=== PATIENT | male | born 1930 | race Caucasian/White ===

== ENCOUNTER → 2016-06-28 | Day surgery (SDC) | payer OTHER ==
[~2016-06-28] VITALS: Ht 160 cm; Wt 68.0 kg
[2016-06-28] VITALS (9 sets, daily range): BP systolic 116–174; BP diastolic 43–96
[~2016-06-28] MED LIST: ASPIRIN81 MG ORAL; BSS 15ml BTL ONE; BSS 500ml btl ONE; CLOPIDOGREL75 MG ORAL; Dexamethasone 4mg/ml vial ONE; Diclofenac Sod 0.1% Op Soln RIGHT EYE SCH; DiphenhydrAMINE 50mg/ml Inj IVP PRN; DiphenhydrAMINE 50mg/ml Inj ONE; EPINEPHrine 1mg/1ml Amp ONE; Gatifloxacin Opth Solution 0.5% RIGHT EYE SCH; JANUVIA25 MG ORAL; LR 1000ml ONE; Labetalol 5mg/ml 20ml vial IV PRN; Lidocaine 1% MPF 10mg/ml 5ml ONE; METOPROLOL SUCC50 MG ORAL; OXISTAT30 G1 TP; PRAVASTATIN SOD20 M1 ORAL; Phenylephrine 10% Opth Soln 5ml RIGHT EYE SCH; Povidone-Iodine 5% opth solution ONE; Sodium Hyaluronate 10 mg/ml 0.85ml ONE; Sterile Water Irrig 1000ml IRRIG ONE; TAMSULOSIN HCL0.4 MG ORAL; TUMS300 MG PO; Tropicamide 1% Opth Soln RIGHT EYE SCH; fentaNYL 100 mcg/2 mL IV ONE
[2016-06-28 08:13] LABS: BASOPHILS % (AUTO) 0.9 % (0.0-2.0); EOSINOPHILS % (AUTO) 1.3 % (0.0-3.0); LYMPHOCYTES % (AUTO) 31.4 % (20.0-45.0); MEAN CORPUSCULAR HEMOGLOBIN 32.9 PG (27.0-31.0); MEAN CORPUSCULAR HGB CONC 32.9 G/DL (32.0-36.0); MEAN CORPUSCULAR VOLUME 100 FL (80-99); MEAN PLATELET VOLUME 8.5 FL (6.5-10.1); MONOCYTES % (AUTO) 10.4 % (1.0-10.0); NEUTROPHILS % (AUTO) 55.9 % (45.0-75.0); PLATELET COUNT 121 K/UL (150-450); RED BLOOD COUNT 4.97 M/UL (4.70-6.10); RED CELL DISTRIBUTION WIDTH 12.1 % (11.6-14.8); WHITE BLOOD COUNT 5.9 K/UL (4.8-10.8)
[2016-06-28 08:24] LABS: ANION GAP 16 (5-15); CALCIUM 9.1 mg/dL (8.6-10.2); CARBON DIOXIDE 23 mEQ/L (20-30); CHLORIDE 100 mEQ/L (98-107); CREATININE 2.1 mg/dL (0.7-1.2); HEMOLYSIS 24; POTASSIUM 4.8 mEQ/L (3.4-4.9); SODIUM 139 mEQ/L (135-145)
--- NOTE | 2016-06-28 09:57 | Anethesia Preoperative Eval ---
Anesthesia Pre-op PMH/ROS General Date of Evaluation: Jun 28, 2016 Anesthesiologist: Hector ASA Score: ASA 3 Mallampati Score Class I : Soft palate, uvula, fauces, pillars visible Class II: Soft palate, uvula, fauces visible Class III: Soft palate, base of uvula visible Class IV: Only hard plate visible Mallampati Classification: Class II Surgeon: Yvonne Diagnosis: Right cataract Surgical Procedure: Right cataract extraction with IOL Anesthesia History: none Social History: alcohol use - severe alcoholism with liver disease Family History: no anesthesia problems Allergies: Coded Allergies: No Known Allergies (Unverified , 06/28/16) Medications: see eMAR Past Medical History Cardiovascular: Reports: HTN, other - HLD, CHF, PVD, Denies: CAD, [place], arrhythmia, valve dz Pulmonary: Denies: COPD, MODESTA, asthma, other Gastrointestinal/Genitourinary: Reports: CRI, GERD, other - BPH, Denies: ESRD Neurologic/Psychiatric: 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 Exam Physician Exam Last Vital Signs Date Time Temp Pulse Resp B/P Pulse Ox O2 Delivery O2 Flow Rate FiO2 06/28/16 08:27 97.6 64 18 159/76 99 Room Air Constitutional: NAD Cardiovascular: RRR Respiratory: CTA Airway Exam Mallampati Score: Class II Anesthesia Pre-op A/P Labs Hematology Test 06/28/16 08:02 White Blood Count 5.9 K/UL (4.8-10.8) Red Blood Count 4.97 M/UL (4.70-6.10) Hemoglobin 16.3 G/DL (14.2-18.0) Hematocrit 49.6 % (42.0-52.0) Mean Corpuscular Volume 100 FL (80-99) H Mean Corpuscular Hemoglobin 32.9 PG (27.0-31.0) H Mean Corpuscular Hemoglobin Concent 32.9 G/DL (32.0-36.0) Red Cell Distribution Width 12.1 % (11.6-14.8) Platelet Count 121 K/UL (150-450) L Mean Platelet Volume 8.5 FL (6.5-10.1) Neutrophils (%) (Auto) 55.9 % (45.0-75.0) Lymphocytes (%) (Auto) 31.4 % (20.0-45.0) Monocytes (%) (Auto) 10.4 % (1.0-10.0) H Eosinophils (%) (Auto) 1.3 % (0.0-3.0) Basophils (%) (Auto) 0.9 % (0.0-2.0) Chemistry Test 06/28/16 08:02 Sodium Level 139 mEQ/L (135-145) Potassium Level 4.8 mEQ/L (3.4-4.9) Chloride Level 100 mEQ/L (98-107) Carbon Dioxide Level 23 mEQ/L (20-30) Anion Gap 16 (5-15) H Blood Urea Nitrogen 32 mg/dL (7-23) H Creatinine 2.1 mg/dL (0.7-1.2) H Estimat Glomerular Filtration Rate mL/min (>60) Glucose Level 160 mg/dL (74-106) H Calcium Level 9.1 mg/dL (8.6-10.2) Studies Pre-op Studies: EKG Risk Assessment & Plan Assessment: ASA III Plan: MAC Status Change Before Surgery: No Pre-Antibiotics Drug: LAVELLE JOYCE M.D. Jun 28, 2016 09:57
--- NOTE | 2016-06-28 10:00 | Immediate Post-Op Evaluation ---
Immediate Post-Op Evalulation Immediate Post-Op Evalulation Procedure: Right cataract extraction with IOL Date of Evaluation: Jun 28, 2016 Time of Evaluation: 11:24 IV Fluids: 300 Blood Products: 0 Estimated Blood Loss: 0 Urinary Output: 0 Blood Pressure Systolic: 174 Blood Pressure Diastolic: 96 Pulse Rate: 68 Respiratory Rate: 17 O2 Sat by Pulse Oximetry: 100 Temperature (Fahrenheit): 97.3 Pain Score (1-10): 0 Nausea: No Vomiting: No Complications 0 Patient Status: awake, reacts, patent, none Hydration Status: adequate Drug: N/A LAVELLE CARRASCO M.D. Jun 28, 2016 10:00
--- NOTE | 2016-06-28 10:01 | 48 Hour Post Anesthesia Eval ---
Post Anesthesia Evaluation Procedure: Right cataract extraction with IOL Date of Evaluation: Jun 28, 2016 Blood Pressure Systolic: 161 0: 74 Pulse Rate: 66 Respiratory Rate: 16 O2 Sat by Pulse Oximetry: 100 Airway: patent Nausea: No Vomiting: No Pain Intensity: 0 Hydration Status: adequate Cardiopulmonary Status: at baseline Mental Status/LOC: patient returned to baseline Post-Anesthesia Complications: 0 Follow-up care needed: ready to discharge LAVELLE CARRASCO M.D. Jun 28, 2016 10:01
--- NOTE | 2016-06-28 11:25 | Brief Operative Note ---
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 Lathe Machinist: None Additional Surgeons: None Anesthesiologist: Dr. Krishnan Anesthesia: MAC Specimen: none Complications: none Condition: stable Estimated Blood Loss: none Drains: none Implant(s) used?: Yes - Monofocal PC IOL implanted in the right eye without complication JULIAN RUSSELL Jun 28, 2016 11:25
--- NOTE | 2016-06-29 06:07 | Operative Note - Dictated ---
DATE OF SURGERY: 06/28/2016 FACILITY: [facility]. SURGEON: Harris Russell M.D. FAMILY MEDICINE PHYSICIAN ASSISTANT: None. ANESTHESIOLOGIST: Dr. Abdul. ANESTHESIA: Monitored anesthesia care (MAC). PREOPERATIVE DIAGNOSES: 1. Cataract, right eye. 2. Floppy iris syndrome. 3. Complex cataract. 4. 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 POSTOPERATIVE DIAGNOSES: 1. Cataract, right eye. 2. Floppy iris syndrome 3. Complex cataract. 4. 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 SURGERY PERFORMED: 1. Cataract extraction with phacoemulsification and posterior chamber intraocular lens implantation in the right eye. 2. Insertion of Malyugin ring for treatment of floppy iris syndrome. INDICATION FOR SURGERY: The patient is an 85-year-old gentleman with a history of hard of hearing and cardiovascular chest pain. The patient has hypertension, hypercholesterolemia, coronary artery disease, benign prostatic hypertrophy, macular degeneration, corneal dystrophy, and corneal scar. The medications that the patient is taking include Alphagan P for glaucoma. The patient has glaucoma as well. The patient is not allergic to any medications and the patient is a heavy drinker, but not a smoker. The patient is taking simvastatin, Diovan, Alphagan. He is complaining of blurred vision in the right eye. On examination of the right eye, the cornea has some corneal scar and corneal dystrophy. Anterior chamber is clean and quiet. Pupillary reflexes normal. There is no RAPD. There is 5+ nuclear sclerosis and 3+ cortical cataract in the right eye. Funduscopy shows macular degeneration, high C/D ratio. The periphery retina is flat. To improve his vision in the right eye, the cataract has to be removed and posterior chamber intraocular lens has to be implanted. INFORMED CONSENT: The nature of the surgery, risks, benefits, alternatives, and potential complications were explained all in the language Farsi to him. The potential complications including, but not limited to bleeding, infection, posterior capsular rupture, lens subluxation, flat anterior chamber, iris prolapse, corneal edema, macular edema, wound leak, retinal detachment, endophthalmitis, uveitis, loss of vision, and even loss of the eye were all explained in detail to the patient. The patient was understanding and accepted all the complications. The alternatives including accommodating lenses, multifocal lenses, and conventional cataract surgery with limbal relaxing incision for treatment of astigmatism were all explained in detail to the patient. He voiced understanding. The patient elected to have a conventional cataract surgery in the right eye. Then, he signed the consent form, which is in the chart. DESCRIPTION OF SURGERY AND FINDINGS: Following that, the patient was taken to the operation room in a stable condition. Lidocaine gel Akten 3.5% were applied to the conjunctiva of the right eye. Following that, IV sedation was given by the anesthesiologist, Dr. Abdul. After adequate anesthesia and sedation had been achieved, the right eye was prepped and draped in sterile fashion for each ocular surgery. Following that, a speculum was placed in the right eye. Following that, using a Super Sharp knife a clear corneal side port was created. Following that, 1% lidocaine without preservative (MPF) was injected into the anterior chamber. Viscoelastic agent Healon was injected into the anterior chamber. Following that, a clear corneal temporal keratotomy was performed using a 2.8 mm keratome. Following that, VisionBlue was injected under the viscoelastic agent on top of the anterior capsule of the lens to stain the capsule. Following that, the whole viscoelastic agent was removed from the anterior chamber. Following that, using an balanced salt solution, hydrodissection and hydrodelineation was performed and the nucleus was freed. Using phacoemulsification machine, anterior capsulotomy was performed under the viscoelastic agent in the fashion of capsulorrhexis beautifully. After hydrodissection and hydrodelineation, phacoemulsification was performed in the fashion of horizontal chop with the phacoemulsification machine. The viscoelastic agent was injected into the anterior chamber again to protect the endothelium of the cornea. Following that, after removal of the nucleus, the cortical material was removed from the capsular bag. Following that the capsular bag was polished. Following that, the capsular bag was filled with viscoelastic agent, Healon. Following that, a +22.5 diopter ZCB00 foldable PCIOL with serial #[id number] was inserted into the capsular bag. Using a Sinskey hook, the lens was manipulated and put in the proper position. Following that, the viscoelastic was removed from the anterior part of the lens. The anterior chamber was filled with balanced salt solution. The wound was hydrated with balanced salt solution. The wound was checked for leakage. There was no leakage. Vigamox eye drops were applied to the conjunctiva of the right eye. The patient tolerated the surgery without complications. At the end of the surgery, the eye was patched with a clear sterile fenestrated shield. Following that, the patient was transferred to the recovery room. In the recovery room, postoperative orders and directions were given to the patient. The patient will be discharged home upon stabilization. The patient will be followed in my office tomorrow morning at 10 o'clock in the morning. ADDENDUM: After viscoelastic was injected into the anterior chamber, Malyugin ring was injected into the anterior chamber. Following that, a coil of the Malyugin ring was engaged with the sphincter of the pupil. A josh-shaped space was created for safe capsulotomy and safe phacoemulsification. At the end of the surgery, the Malyugin ring was removed from the anterior chamber. Harris Russell M.D. DR: Johnathan JOB#: [id number] CC:
--- NOTE | 2016-06-29 12:47 | Discharge Summary ---
DATE OF ADMISSION: 06/28/2016 DATE OF DISCHARGE: 06/28/2016 REASON FOR HOSPITALIZATION: Cataract, right eye. SURGERY PERFORMED: 1. Cataract extraction with phacoemulsification of posterior chamber intraocular lens implantation in the right eye. 2. Insertion of Malyugin ring anterior chamber to treat floppy iris syndrome _ . CONDITION IN THE HOSPITAL: The patient tolerated the surgery without complications. The patient was stable at discharge. DISCHARGE MEDICATIONS: 1. Prednisolone one drop in the right eye. 2. Vigamox eye drops one drop q.i.d. in the right eye. 3. Acular one drop q.i.d in the right eye. POSTOPERATIVE ORDERS: The patient has to rest at home, no bending, no lifting, and no watching TV tonight. POSTOPERATIVE FOLLOWUP: The patient will be followed in my office tomorrow morning at 10 o' clock in the a.m. Harris Russell M.D. DR: Johnathan JOB#: [id number] CC:
--- NOTE | 2016-06-30 11:15 | Pre-Procedure Note/Attestation ---
Pre-Procedure Note/Attestation Complete Prior to Procedure Planned Procedure: right Procedure Narrative: 1. CATARACT EXTRACTION WITH PHACO AND PC IOL IMPLANTATION, RIGHT EYE. 2.MALYUGIN RING INSERTION, RIGHT EYE FOR FLOPPY IRIS SYNDROME. 3.COMPLEX CATARACT , RIGHT EYE Indications for Procedure Pre-Operative Diagnosis: 1. CATARACT ,RIGHT EYE. 2. FLOPPY IRIS SYNDROME, RIGHT EYE 3. COMPLEX CATARACT , RIGHT EYE. Attestation I attest that I discussed the nature of the procedure; its benefits; risks and complications; and alternatives (and the risks and benefits of such alternatives ), prior to the procedure, with the patient (or the patient's legal textile machinery sales representative). I attest that, if there was a reasonable possibility of needing a blood transfusion, the patient (or the patient's legal textile machinery sales representative) was given the [facility] standardized written summary, pursuant to the [place] Blood Safety Act ([place] Health and Safety Code # 1645, as amended). I attest that I re-evaluated the patient just prior to the surgery and that there has been no change in the patient's H&P, except as documented below: JULIAN VEGA Jun 30, 2016 11:15
--- NOTE | 2016-07-01 08:47 | Pre-op HX & Phy Repo 2 SIG ---
DATE OF ADMISSION: 06/28/2016 NOTE: VERY POOR AUDIO QUALITY REASON FOR EVALUATION: I was asked by Dr. Harris Russell to see this 85-year-old male who is going for surgery on the right eye. The patient is having cataract in this eye and was seen by Dr. Russell. For complete dictation on the patient, the patient's old chart was reviewed. The patient and his are at bedside. PAST MEDICAL HISTORY: Remarkable for history of stroke and hypertension, history of type 2 diabetes. No history of heart attack. . No thyroid problem. Mild renal insufficiency. No anemia. History of GERD. . MEDICATIONS: , metoprolol, and Plavix. ALLERGIES: None known. FAMILY HISTORY: Father from cancer and mother from stroke. HABITS: Denied tobacco use. The patient drinks alcohol. No street drugs. PHYSICAL EXAMINATION: GENERAL: The patient is looking pale. VITAL SIGNS: Blood pressure 159/76, temperature 97.6 degrees, pulse 64, respirations 17, and O2 saturation 90% on room air. SKIN: Status dermatitis and discoloration. Poor skin turgor. LYMPHATICS: Lymph nodes not enlarged. HEENT: Head, normocephalic and atraumatic. Ears clear. No hearing impairment. Eyes, full description per Dr. Harris Russell. Mouth, clear and moist. . Nose, clear. No discharge. NECK: No jugular venous distention. Carotid artery +2. Trachea midline. Thyroid gland not enlarged. CHEST: No deformity or asymmetry. LUNGS: Clear to auscultation and percussion. No rales or rhonchi. HEART: Sinus rhythm. No ectopy. No murmur. No S3 or S4. ABDOMEN: Soft. No palpable mass. No rebound. GENITOURINARY: CVA nontender. . NEUROLOGIC: History of stroke with right hemiplegia. No tremor or nystagmus. DIAGNOSTIC DATA: Electrocardiogram shows normal sinus rhythm at 67 per minute. LABORATORY DATA: The patient did not eat or drink from last night, had blood sugar of 148. . IMPRESSION: 1. Cataract, right eye. 2. Type 2 diabetes mellitus. 3. Hypertension. 4. History of cerebrovascular accident. 5. Right hemiplegia. 6. Gastroesophageal reflux disease. 7. Back pain. 8. . PLAN: Cataract extraction right eye with intraocular lens implant per Dr. Harris Russell. CONCLUSION: The patient's vital signs are stable. control. The patient did not eat or drink from last night. normal. The patient's condition is optimized for surgery. Thank you, Dr. Russell, for privilege to participate in presurgical care of this interesting patient. Monica Tovar M.D. DR: ALTAGRACIA JOB#: [id number] CC:
== END | disposition home or self-care (01) ==
LOC: SUR 07:18
DX: H25.11 Age-related nuclear cataract, right eye (principal); H25.011 Cortical age-related cataract, right eye; H21.81 Floppy iris syndrome; H35.3110 Nonexudative age-related macular degeneration, right eye, stage unspecified; H18.50 Unspecified hereditary corneal dystrophies; H17.9 Unspecified corneal scar and opacity; H40.9 Unspecified glaucoma; E11.9 Type 2 diabetes mellitus without complications; I10 Essential (primary) hypertension; N28.9 Disorder of kidney and ureter, unspecified; K21.9 Gastro-esophageal reflux disease without esophagitis; N40.0 Benign prostatic hyperplasia without lower urinary tract symptoms; I87.2 Venous insufficiency (chronic) (peripheral); M54.9 Dorsalgia, unspecified; E78.5 Hyperlipidemia, unspecified; I50.9 Heart failure, unspecified; I73.9 Peripheral vascular disease, unspecified; F32.9 Major depressive disorder, single episode, unspecified; F41.9 Anxiety disorder, unspecified; M19.90 Unspecified osteoarthritis, unspecified site; K70.9 Alcoholic liver disease, unspecified; F10.20 Alcohol dependence, uncomplicated; Z79.02 Long term (current) use of antithrombotics/antiplatelets
CPT/HCPCS: 36415; 66982; 80048; 82962; 85025; 93005; J0171; J1100; J1200; J3010; J7120; V2632; 94003; 94150